=== PATIENT | male | born 1980 | race Caucasian/White ===

== ENCOUNTER → 2016-10-29 | Outpatient (CLI) | payer OTHER ==
[2016-10-29 13:50] LABS: FOLLICLE STIMULATING HORMONE 2.04 mIU/mL (1.27-19.26); LEUTINIZING HORMONE 2.86 mIU/mL (1.24-8.62)
[2016-11-01 16:28] LABS: TESTOSTERONE FREE (PNL) 63.5 pg/mL (35.0-155.0)
== END | disposition home or self-care (01) ==
LOC: CLAB 12:02
PROVIDERS: Urology
DX: R89.1 Abnormal level of hormones in specimens from other organs, systems and tissues (principal)
CPT/HCPCS: 82533; 82670; 83001; 83002; 84146; 84402; 84403; G0103